=== PATIENT | female | born 1990 | race Two or more races ===

== ENCOUNTER 2025-01-31 16:25 | Emergency (ER) | payer OTHER, SELFPAY ==
[2025-01-31 16:27] VITALS: BMI 38.9
[2025-01-31 16:45] VITALS: BP 122/81; PULSE 78; RESP 19; TEMP 37.1; O2SAT 99
--- NOTE | 2025-01-31 16:57 | XR_ITS ---
Examination: Examination: Right RIBS 4 views TECHNIQUE: AP, RPO, LPO, AP lower RIBS 4 views Date and time: January 31, 2025 1921 hours INDICATIONS: Right-sided rib pain beginning 2 weeks ago. FINDINGS: No pneumothorax The images are blurred secondary to patient motion No rib fractures noted No underlying pneumonia IMPRESSION: Ribs appear intact
--- NOTE | 2025-01-31 16:58 | XR_ITS ---
Examination: PA lateral chest 2 views TECHNIQUE: Upright PA lateral chest 2 views Date and time: January 31, 2025 1719 hours INDICATIONS: Coughing beginning one month ago FINDINGS: The films are underpenetrated Normal heart size No pneumonia or pulmonary edema The osseous structures are intact IMPRESSION: Negative for pneumonia
--- NOTE | 2025-01-31 16:59 | PD.EDRME ---
Rapid Medical Screening Exam E Arrival date/time: 01/31/25 16:25 34-year-old female with no known medical history presents to the emergency room with a chief complaint of a cough x 1 month. Patient also states that she is having some right-sided rib pain and back pain. I have greeted and performed a focused initial assessment of this patient. A comprehensive ED assessment and evaluation of the patient, analysis of all test results, and completion of the medical decision making process will be conducted by additional ED providers. Chief Complaint: Shortness of Breath/Dyspnea Vital signs: Vital Signs Temperature 98.7 F 01/31/25 16:45 Pulse Rate 78 01/31/25 16:45 Respiratory Rate 19 01/31/25 16:45 Blood Pressure 122/81 01/31/25 16:45 Pulse Oximetry (%) 99 01/31/25 16:45 Oxygen Delivery Method Room Air 01/31/25 16:45 Vital signs reviewed by provider: Yes
[2025-01-31 21:08] VITALS: BP 133/78; PULSE 82; RESP 16; TEMP 37.3; O2SAT 98
[2025-01-31 21:13] VITALS: BP 133/78; PULSE 82; RESP 16; TEMP 37.3; O2SAT 98
--- NOTE | 2025-01-31 21:21 | EDNOTE_ITS ---
ED SOB =RME/HPI General Chief Complaint: Shortness of Breath/Dyspnea Stated Complaint: SIDE PAIN AND SOB Time Seen by Provider: 01/31/25 21:12 Arrival date/time: 01/31/25 16:25 Limitations: no limitations RME / HPI RME / HPI Narrative: Patient is a 34-year-old female with no past medical history. She is here today with 1 month history of progressive dyspnea and cough. She has new lower leg edema. She denies any fevers or chills. She has no resting chest pain. She does states she has chest pain when coughing. She has no nausea or vomiting. She has no urinary changes. No syncopal related episodes. She states she went to clinic today and was brought here to have a chest x-ray and rib x-rays performed. Related Data Home Medications ?Medication ?Instructions ?Recorded ?Confirmed PNV CMB#95/FERROUS FUMARATE/FA 1 tab PO QDAY #0 tabs 0 09/07/13 ( MULTIVITAMINS TABLET) Previous Rx's ?Medication ?Instructions ?Recorded docusate sodium 250 mg capsule 1 cap PO QDAY #90 caps 09/22/13 ibuprofen 400 mg tablet 800 mg (2 x 400 mg) PO TIDWM PRN 09/22/13 ABDOMINAL PAIN #60 tabs benzonatate 100 mg capsule 100 mg PO BID PRN cough #20 caps 01/31/25 Allergies Allergy/AdvReac Type Severity Reaction Status Date / Time No Known Allergies Allergy Verified 01/31/25 16:26 Review of Systems Review of Systems Systems Reviewed: All systems reviewed, normal except as documented ED Exam General Limitations: Present no limitations General appearance: Present alert and in no apparent distress Head Head exam: Present atraumatic Eye Eye exam: Present normal appearance, PERRL and EOMI ENT ENT exam: Present normal exam, normal oropharynx and mucous membranes moist Neck Neck exam: Present normal inspection, full ROM and trachea midline Chest Chest inspection: Present normal inspection and symmetric chest wall rise Respiratory Respiratory exam: Present normal lung sounds bilaterally Cardiovascular Cardiovascular exam: Present regular rate, normal rhythm and normal heart sounds Abdominal Exam Abdominal exam: Present soft and normal bowel sounds Extremities Exam Extremities exam: Present normal inspection, full ROM and pedal edema Back Exam Back exam: Present normal inspection and full ROM Neurological Exam Neurological exam: Present alert and oriented X3 Psychiatric Psychiatric exam: Present normal affect and normal mood Skin Skin exam: Present warm, dry, intact and normal color Course Quality Measures none Orders Category Date Time Status EKG (ED ONLY) *Do not use* NOW Care 01/31/25 22:45 Completed EKG (ED Only) Stat Exams 01/31/25 22:45 Draft XR chest 2V Stat Exams 01/31/25 16:58 Completed XR ribs RT min 3V w CXR1V Stat Exams 01/31/25 16:57 Completed BNP [B-Type Natriuretic Peptide] Stat Lab 01/31/25 21:43 Completed CBC Stat Lab 01/31/25 21:43 Completed CMP [Comprehensive Metabolic Panel] Stat Lab 01/31/25 21:43 Completed HCG,Qualitative Serum Stat Lab 01/31/25 21:43 Completed Mag [Magnesium] Stat Lab 01/31/25 21:43 Completed UA, C/S IF [Urinalysis, C/S if Indicated] Stat Lab 01/31/25 21:49 Completed Vital Signs Vital signs: Vital Signs Temperature 98.7 F 01/31/25 16:45 Pulse Rate 78 01/31/25 16:45 Respiratory Rate 19 01/31/25 16:45 Blood Pressure 122/81 01/31/25 16:45 Pulse Oximetry (%) 99 01/31/25 16:45 Oxygen Delivery Method Room Air 01/31/25 16:45 Shortness of Breath / Dyspnea MDM Narrative MDM Narrative:: Patient is a 34-year-old female with no past medical history. She is here today with 1 month history of progressive dyspnea and cough. She has new lower leg edema. She denies any fevers or chills. She has no resting chest pain. She does states she has chest pain when coughing. She has no nausea or vomiting. She has no urinary changes. No syncopal related episodes. She states she went to clinic today and was brought here to have a chest x-ray and rib x-rays performed. On exam, patient is nontoxic-appearing and in no visible signs distress. Vital signs are stable. Well score is 0. Her workup here is essentially unremarkable. Patient will be discharged with a prescription of Tessalon Perles. She is asked to obtain a primary doctor for follow-up. Return as needed for any worsening emergent changes. Patient data External records reviewed:: None Clinical information provided by:: patient Social determinants that could affect healthcare access:: none Patient has the following chronic illnesses:: n/a How is presenting disease/condition affected by chronic disease/condition?: no chronic disease Evaluation data The following diagnostics were reviewed and interpreted by me:: lab results (CBC, CMP, and BNP are all unremarkable), radiology exam(s) (Clear and expanded lungs without any mass or infiltrate) and EKG tracing(s) (Normal sinus rhythm at [address] changes or dynamic T waves.) Lab and/or radiology exams considered but not ordered:: n/a Interpretation Summary: No acute findings Medications / Prescriptions Medications or Prescriptions considered but not ordered:: n/a Medication administrations:: n/a Consultations Consultation(s) initiated? (list below): No Diagnosis Shortness of Breath Differential Diagnosis: acute exacerbation of chronic obstructive airways disease, congestive heart failure and community acquired pneumonia Most likely diagnosis given after review of the tests above:: Viral cough Admission Indicated Admission indicated?: not indicated Admission Request Was there a request for admission?: No Disposition Plan Disposition Plan: Discharge Discharge Attestation Discharge Attestation: The patient and all family members were given an opportunity to ask questions and understood the discharge instructions. Discharge instructions specifically effects, indications for sooner follow up or return to the emergency department, and the expected course of current diagnosis. Patient condition: Stable Discharge Plan Plan Patient Disposition: HOME (Self Care) Patient condition on transfer: Stable Prescriptions/Referrals Prescriptions/Med Rec: New benzonatate 100 mg capsule 100 mg PO BID PRN (Reason: cough) Qty: 20 0RF No Action PNV CMB#95/FERROUS FUMARATE/FA ( MULTIVITAMINS TABLET) 1 EACH tablet 1 tab PO QDAY Qty: 0 ibuprofen 400 MG tablet 800 mg PO TIDWM PRN (Reason: ABDOMINAL PAIN) Qty: 60 0RF docusate sodium 250 MG capsule 1 cap PO QDAY Qty: 90 0RF Referrals: No Primary/Family,Physician [Primary Care Provider] - In 1 week Problem List Clinical Impression: Costochondritis, Cough Patient/Caregiver Discharge Instructions Additional Instructions: - Continue current medications. We are prescribing medications to help with your cough additionally. - It is important that you obtain a primary doctor for close follow-up. - Return as needed for any worsening or emergent changes. Print Language: Kazakh Stand Alone Forms: Machelle Award Info., Patient Portal Info Letter
[2025-01-31 21:49] LABS: Basophils # (Auto) 0.1 Thou/mm3 (0.0-0.2); Basophils % (Auto) 1 % (0-2.5); Eosinophils # (Auto) 0.7 Thou/mm3 (0.0-0.5); Eosinophils % (Auto) 6 % (0-10); Hematocrit 33.8 % (36.0-46.0); Hemoglobin 10.2 g/dL (12.0-16.0); Immature Granulocytes Auto 0.02 Thou/mm3 (0.00-0.00); Lymphocytes # (Auto) 4.3 Thou/mm3 (1.0-4.8); Lymphocytes % (Auto) 40 % (10-50); Mean Corpuscular HGB Conc 30.2 g/dl (31.0-37.0); Mean Corpuscular Hemoglobin 23.1 pg (25.0-35.0); Mean Corpuscular Volume 77 fL (80-100); Monocytes # (Auto) 0.7 Thou/mm3 (0.0-0.8); Monocytes % (Auto) 7 % (0-12); Neutrophils # (Auto) 4.8 Thou/mm3 (1.8-7.7); Neutrophils % (Auto) 46 % (37-80); Nucleated Red Blood Cell # 0.00 Thou/mm3 (0.00-0.00); Nucleated Red Blood Cell % 0 /100 WBC (0); Platelet Count 417 Thou/mm3 (140-440); RDW Standard Deviation 50.3 fL (36.4-46.3); Red Blood Count 4.41 Miln/mm3 (4.00-5.20); White Blood Count 10.6 Thou/mm3 (3.6-11.0)
[2025-01-31 21:57] LABS: Collection Type, Urine Voided
[2025-01-31 22:08] LABS: B-Type Natriuretic Peptide 36 pg/mL (0-100)
[2025-01-31 22:09] LABS: Alanine Aminotransferase 26 U/L (10-49); Albumin, Serum 4.6 gm/dL (3.5-5.0); Albumin/Globulin Ratio 1.7 (1.2-2.2); Alkaline Phosphatase 118 U/L (46-116); Anion Gap 9 (7-16); Aspartate Amino Transferase 23 U/L (0-34); BUN/Creatinine Ratio 8 Ratio (12-20); Bilirubin,Total 0.3 mg/dL (0.3-1.2); Blood Urea Nitrogen 5 mg/dL (9-23); Calcium 9.5 mg/dL (8.3-10.6); Calcium (Corrected) 9.5 mg/dL (8.5-10.1); Carbon Dioxide 24.5 mMol/L (20.0-31.0); Chloride 108 mMol/L (98-107); Creatinine (Component) 0.6 mg/dL (0.6-1.3); Estimated Creatinine Clearance 146.0 mL/min (>60); Globulin 2.7 gm/dL (2.3-3.5); Glucose 101 mg/dL (74-106); HCG,Qualitative Serum Negative; Magnesium 1.9 mg/dL (1.6-2.6); Osmolality,Calculated 278 (275-295); Potassium 4.1 mMol/L (3.4-5.1); Sodium 141 mMol/L (136-145); Total Protein 7.3 gm/dL (5.7-8.2); eGFR > 60 See Note
[2025-01-31 22:10] LABS: Bilirubin,Urine Negative (Negative); Blood,Urine Trace (Negative); Clarity,Urine Clear (Clear/Hazy); Color,Urine Lt-Yellow (Lt Yel-Yel); Culture Indicated,Urine Not Indicated; Glucose, Urine Negative (Negative); Ketones,Urine Negative (Negative); Leukocyte Esterase,Urine Negative (Negative); Nitrite,Urine Negative (Negative); PH,Urine 6.5 (5.0-7.0); Protein,Urine Negative (Neg - Trace); RBC,Urine 1 /hpf (0-3); Specific Gravity,Urine 1.019 (1.001-1.035); Squamous Epithelial Cell,Urine 1 /hpf (0-5); Urobilinogen,Urine Negative mg/dL (0.0-1.0); WBC,Urine 2 /hpf (0-5)
--- NOTE | 2025-01-31 22:45 | EKG_ITS ---
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
[2025-01-31 22:47] VITALS: BP 134/93; PULSE 80; RESP 17; TEMP 36.6; O2SAT 98
== END 2025-01-31 23:19 | disposition home or self-care (01) ==
PROVIDERS: Physician Assistant Medical; Emergency Provider Emergency Medicine
DX: M94.0 Chondrocostal junction syndrome [Tietze] (principal); R05.9 Cough, unspecified
CPT/HCPCS: 36415; 71046; 71101; 80053; 81001; 83735; 83880; 84703; 85025; 93005; 99283